=== PATIENT | female | born 1985 | race Caucasian/White ===

== ENCOUNTER → 2024-10-10 | Outpatient (CLI) | payer OTHER, SELFPAY ==
--- NOTE | 2024-10-10 13:15 | XR_ITS ---
Examination: Screening digital mammography, bilateral Computer aided detection 3-D breast Tomosynthesis, bilateral Date and time of exam: October 10, 2024 1256 hours No priors Indication: Screening Technique: Nonmagnified MLO, CC views of the breasts to been obtained, reconstructed from 3-D Tomosynthesis images. R2 computer aided detection program utilized for evaluation of suspicious masses and/or abnormal calcifications. 3-D Tomosynthesis images obtained. Findings: The breasts are heterogeneously dense, which may obscure small masses Probably benign glandular tissue retroareolar region right breast on the CC view Benign calcifications Impression: BI-RADS Category 0: Incomplete: Need additional imaging evaluation Recommend right breast sonography follow-up to confirm benign glandular tissue retroareolar region right breast
== END | disposition home or self-care (01) ==
LOC: CDIM 12:50
PROVIDERS: PCP Family Medicine; Referring Provider Family Medicine; Visit Provider Family Medicine
DX: Z12.31 Encounter for screening mammogram for malignant neoplasm of breast (principal); R92.8 Other abnormal and inconclusive findings on diagnostic imaging of breast
CPT/HCPCS: 77063; 77067

== ENCOUNTER → 2024-10-22 | Outpatient (CLI) | payer OTHER, SELFPAY ==
[2024-10-22 10:20] LABS: Basophils # (Auto) 0.1 Thou/mm3 (0.0-0.2); Basophils % (Auto) 1 % (0-2.5); Eosinophils # (Auto) 0.2 Thou/mm3 (0.0-0.5); Eosinophils % (Auto) 2 % (0-10); Hematocrit 37.3 % (36.0-46.0); Hemoglobin 12.6 g/dL (12.0-16.0); Immature Granulocytes % (Auto) 0 % (0-0); Immature Granulocytes Auto 0.01 Thou/mm3 (0.00-0.00); Lymphocytes # (Auto) 3.2 Thou/mm3 (1.0-4.8); Lymphocytes % (Auto) 37 % (10-50); Mean Corpuscular HGB Conc 33.8 g/dl (31.0-37.0); Mean Corpuscular Volume 83 fL (80-100); Monocytes # (Auto) 0.8 Thou/mm3 (0.0-0.8); Monocytes % (Auto) 9 % (0-12); Neutrophils # (Auto) 4.4 Thou/mm3 (1.8-7.7); Neutrophils % (Auto) 51 % (37-80); Nucleated Red Blood Cell % 0 /100 WBC (0); Platelet Count 351 Thou/mm3 (140-440); RDW Standard Deviation 37.1 fL (36.4-46.3); White Blood Count 8.7 Thou/mm3 (3.6-11.0)
[2024-10-22 10:39] LABS: Alanine Aminotransferase 16 U/L (10-49); Albumin, Serum 4.2 gm/dL (3.5-5.0); Albumin/Globulin Ratio 1.8 (1.2-2.2); Alkaline Phosphatase 64 U/L (46-116); Anion Gap 8 (7-16); Aspartate Amino Transferase 15 U/L (0-34); BUN/Creatinine Ratio 14 Ratio (12-20); Bilirubin,Total 0.6 mg/dL (0.3-1.2); Blood Urea Nitrogen 13 mg/dL (9-23); Calcium 9.6 mg/dL (8.3-10.6); Calcium (Corrected) 9.6 mg/dL (8.5-10.1); Carbon Dioxide 24.6 mMol/L (20.0-31.0); Cardiac Risk Estimate 3.6 RATIO (3.7-5.6); Chloride 108 mMol/L (98-107); Cholesterol 142 mg/dL (132-200); Creatinine (Component) 0.9 mg/dL (0.6-1.3); Globulin 2.4 gm/dL (2.3-3.5); Glucose 109 mg/dL (74-106); HDL Cholesterol 40 mg/dL (40-60); LDL Cholesterol,Calculated 85 mg/dL (0-130); Osmolality,Calculated 282 (275-295); Potassium 4.6 mMol/L (3.4-5.1); Sodium 141 mMol/L (136-145); Thyroid Stimulating Hormone 1.52 uIU/mL (0.55-4.78); Total Protein 6.6 gm/dL (5.7-8.2); Triglycerides 86 mg/dL (30-150); eGFR > 60 See Note
--- NOTE | 2024-10-22 11:15 | XR_ITS ---
Examination: Breast ultrasound, unilateral, right Date and time of exam: October 22, 2024 0934 hours INDICATIONS: BI-RADS 3 probably benign glandular tissue retroareolar region right breast on mammogram October 10, 2024 Technique: Real-time gordon scale ultrasonographic imaging performed right breast including all 4 quadrants as well as nipple retroareolar and axillary region. Findings: No cystic or solid mass IMPRESSION: BI-RADS Category 1: Negative study
== END | disposition home or self-care (01) ==
LOC: CDIM 09:25 → COPL 09:46
PROVIDERS: PCP Family Medicine; Referring Provider Family Medicine; Visit Provider Radiology Diagnostic Radiology
DX: R92.2 Inconclusive mammogram (principal); Z01.419 Encounter for gynecological examination (general) (routine) without abnormal findings; I10 Essential (primary) hypertension
CPT/HCPCS: 36415; 76641; 80053; 80061; 84443; 85025

== ENCOUNTER → 2024-10-26 | Outpatient (CLI) | payer OTHER, SELFPAY ==
--- NOTE | 2024-10-26 16:53 | XR_ITS ---
Examination: Left ankle 2 views TECHNIQUE: AP lateral left ankle 2 views Exam date and time: October 26, 2024, 1701 hours INDICATIONS: Left ankle pain beginning one week ago. FINDINGS: No fracture or dislocation. Mild osteoarthritis tibiotalar joint, talonavicular joint IMPRESSION: Mild osteoarthritis tibiotalar and talonavicular joints
== END | disposition home or self-care (01) ==
PROVIDERS: PCP Family Medicine; Referring Provider Orthopaedic Surgery; Visit Provider Orthopaedic Surgery
DX: M19.072 Primary osteoarthritis, left ankle and foot (principal)
CPT/HCPCS: 73600

== ENCOUNTER 2025-06-09 12:12 | Emergency (ER) | payer OTHER, SELFPAY ==
[2025-06-09 12:13] VITALS: BMI 32.3
[2025-06-09 13:25] VITALS: BP 133/95; PULSE 63; RESP 20; TEMP 36.7; O2SAT 96
--- NOTE | 2025-06-09 13:27 | PD.EDURI ---
Upper Respiratory Inf. RME/HPI General Chief Complaint: Flu Like Symptoms Stated Complaint: COUGH FOR 12 DAYS Time Seen by Provider: 06/09/25 13:26 Arrival date/time: 06/09/25 12:12 RME / HPI RME / HPI Narrative: See [facility] for Dr. Cordon's HPI Documentation. Related Data Previous Rx's ?Medication ?Instructions ?Recorded hydrocodone 5 mg-acetaminophen 325 1 tab PO Q6H PRN pain #20 tabs 03/11/18 mg tablet ([place]) ibuprofen 600 mg tablet 600 mg PO TID PRN pain #20 tabs 03/11/18 hydralazine 10 mg tablet 10 mg PO BID #30 tabs 09/27/23 acetaminophen 300 mg-codeine 30 mg 2 tab PO Q8H PRN pain #20 tabs 06/09/25 tablet albuterol sulfate 90 mcg/actuation 2 puff inhalation Q6H PRN 06/09/25 aerosol inhaler shortness of breath or wheezing #8.5 grams fluconazole 200 mg tablet 400 mg (2 x 200 mg) PO QDAY #60 06/09/25 tabs prednisone 20 mg tablet 20 mg PO BID 3 days #6 tabs 06/09/25 Allergies Allergy/AdvReac Type Severity Reaction Status Date / Time No Known Allergies Allergy Verified 06/09/25 12:15 Review of Systems Review of Systems Systems Reviewed: All systems reviewed, normal except as documented Past Medical History Social History SMOKING STATUS: Never smoker SUBSTANCE USE: does not use ALCOHOL: Never ED Exam Narrative Physical exam: See [facility] for Dr. Cordon's HPI Documentation. Course Quality Measures none Orders Category Date Time Status Bedside COVID-19 Antigen Test NOW Care 06/09/25 13:27 Completed XR chest 2V Stat Exams 06/09/25 13:28 Completed BNP [B-Type Natriuretic Peptide] Stat Lab 06/09/25 13:53 Completed Bilirubin,Direct Stat Lab 06/09/25 13:53 Completed CBC Stat Lab 06/09/25 13:53 Completed CMP [Comprehensive Metabolic Panel] Stat Lab 06/09/25 13:53 Completed Cocci Serology IgM with reflex to IgG [Cocci Serology, Lab 06/09/25 14:22 Completed Unk History] Stat Cocci Serology, IgG Stat Lab 06/09/25 14:22 Completed D-Dimer Stat Lab 06/09/25 13:53 Completed Influenza A & B Rapid Panel Stat Lab 06/09/25 13:46 Completed Magnesium Stat Lab 06/09/25 13:53 Completed RSV [Respiratory Syncytial Virus Ag] Stat Lab 06/09/25 13:46 Completed TSH [Thyroid Stimulating Hormone] Stat Lab 06/09/25 13:53 Completed Troponin I Stat Lab 06/09/25 13:53 Completed ACETAMINOPHEN w/COD 300-30 [Tylenol w/Cod #3] Med 06/09/25 13:27 Discontinued 2 tab PO X1 ONE Albuterol/Ipratr Rt Quiana [Duoneb Rt Quiana] Med 06/09/25 13:27 Discontinued 3 ml INH X1 ONE Fluconazole [Diflucan] Med 06/09/25 15:42 Discontinued 400 mg PO X1 ONE predniSONE Med 06/09/25 13:27 Discontinued 60 mg PO X1 ONE Vital Signs Vital signs: Vital Signs Temperature 98.1 F 06/09/25 13:25 Pulse Rate 63 06/09/25 13:25 Respiratory Rate 20 06/09/25 13:25 Blood Pressure 133/95 H 06/09/25 13:25 Pulse Oximetry (%) 96 06/09/25 13:25 Oxygen Delivery Method Room Air 06/09/25 13:25 Upper Respiratory Infection MDM Narrative MDM Narrative:: This section includes all my notes and documentations, including HPI, PE, and ED course. Grady Cordon MD HPI: 39-year-old female here with months of cough, occasionally productive cough, and dyspnea. Has been treated for pneumonia multiple times. No other complaints. ROS: All negative except as documented in HPI. Physical Exam: General: Alert and oriented. Hacking cough noted. Eyes: Conjunctivae and lids clear. ENT: No nasal congestion. Pharynx normal. TM normal. Neck: Supple. Heart: RRR. Lungs: No respiratory distress. Decreased air movement with diffuse rhonchi. Abdomen: Soft and nontender. Skin: Warm and dry. Neuro: Alert and oriented X 3. I reviewed all diagnostic test results: My interpretation of the chest x-ray is equivocal infiltrates. Blood tests unremarkable, including negative troponin/D-dimer/BNP. Covid/influenza/RSV negative. Coccidioides IgM AB pending. At this point, diagnoses include: Possible Valley Fever Treatment here included: Prednisone 60 mg DuoNeb Two Tylenol #3 Diflucan 100 mg Significant improvement noted. Recommended for outpatient care. Based on my best medical judgment, made decision no further evaluation or treatment indicated at this time. Patient understands and agrees to the discharge instructions customized and printed, see below. Discharge instructions from Dr. Cordon: --No physical exertion for 3 days to help rest the lungs. ?No smoking or exposure to smoking or pets or dust or cold or humidity. --Diflucan as prescribed, since you requested treatment for valley fever before the results. --Prednisone to help decrease the swelling in the airways. --Albuterol 2 puffs every 4-6 hours for 3 days to help keep the airways open. Then as needed for cough or shortness of breath. --Tylenol with codeine for severe cough or severe pain. --See a private doctor on 06/11/2025 for recheck and further care. Ask to review all test results and official radiology reports, to make sure you receive all necessary follow-ups and monitoring, including the results for valley fever. Ask for help until you are completely better. --Seek immediate medical care with worsening or with any concerns. Grady Cordon MD Patient data External records reviewed:: [facility] previous records Clinical information provided by:: patient Social determinants that could affect healthcare access:: none Patient has the following chronic illnesses:: Hypertension How is presenting disease/condition affected by chronic disease/condition?: uneffected by Evaluation data The following diagnostics were reviewed and interpreted by me:: lab results and radiology exam(s) Lab and/or radiology exams considered but not ordered:: none Interpretation Summary: I reviewed all diagnostic test results: My interpretation of the chest x-ray is equivocal infiltrates. Blood tests unremarkable, including negative troponin/D-dimer/BNP. Covid/influenza/RSV negative. Coccidioides IgM AB pending. Medications / Prescriptions Medications or Prescriptions considered but not ordered:: none Medication administrations:: Medication Administration History Discontinued Medications Acetaminophen/Codeine Phosphate (Acetaminophen W/Cod 300-30 Tablet) 2 tab PO X1 ONE Stop: 06/09/25 13:28 Last Admin: 06/09/25 14:07 Dose: Not Given Documented By: Non-Admin Reason: Patient Refused Albuterol/Ipratropium (Albuterol/Ipratropium (Duoneb) Rt Quiana 3 Ml Nebu) 3 ml INH X1 ONE Stop: 06/09/25 13:28 Last Admin: 06/09/25 14:06 Dose: 3 ml Documented By: JAVIER Fluconazole (Fluconazole 100 Mg Tablet) 400 mg PO X1 ONE Stop: 06/09/25 15:43 Last Admin: 06/09/25 16:29 Dose: 400 mg Documented By: Prednisone (Prednisone 20 Mg Tablet) 60 mg PO X1 ONE Stop: 06/09/25 13:28 Last Admin: 06/09/25 14:01 Dose: 60 mg Documented By: Treatment here included: Prednisone 60 mg DuoNeb Two Tylenol #3 Diflucan 100 mg Consultations Consultation(s) initiated? (list below): No Diagnosis Upper Respiratory Differential Diagnosis: upper respiratory infection, croup, otitis media, sinusitis, viral infection, bronchitis, influenza, pharyngitis and other Most likely diagnosis given after review of the tests above:: Possible valley fever Admission Indicated Admission indicated?: not indicated Explain why admission is indicated or not indicated:: With significant improvement and no condition needing emergent intervention, there was no indication for admission. Admission Request Was there a request for admission?: No Disposition Plan Disposition Plan: Discharge Discharge Attestation Discharge Attestation: The patient and all family members were given an opportunity to ask questions and understood the discharge instructions. Discharge instructions specifically effects, indications for sooner follow up or return to the emergency department, and the expected course of current diagnosis. Patient condition: Stable Discharge Plan Plan Patient Disposition: HOME (Self Care) Prescriptions/Referrals Prescriptions/Med Rec: New fluconazole 200 mg tablet 400 mg PO QDAY Qty: 60 2RF prednisone 20 mg tablet 20 mg PO BID 3 Days Qty: 6 0RF Taper: Prednisone Taper 20 mg DAILY for 2 Days and 0 Hour 10 mg DAILY for 2 Days and 0 Hour 5 mg DAILY for 7 Days and 0 Hour acetaminophen-codeine 300-30 mg tablet 2 tab PO Q8H MDD 6 PRN (Reason: pain) Qty: 20 0RF albuterol sulfate 90 mcg/actuation HFA aerosol inhaler 2 puff inhalation Q6H PRN (Reason: shortness of breath or wheezing) Qty: 8.5 0RF No Action ibuprofen 600 mg tablet 600 mg PO TID PRN (Reason: pain) Qty: 20 0RF Rx Instructions: mild to moderate pain hydrocodone-acetaminophen [[place]] 5-325 mg tablet 1 tab PO Q6H MDD 4 tabs per day PRN (Reason: pain) Qty: 20 0RF Rx Instructions: severe pain hydralazine 10 mg tablet 10 mg PO BID Qty: 30 0RF Referrals: Alina Huggins MD [Primary Care Provider, Family Practice] - In 1 week Problem List Clinical Impression: Cough Patient/Caregiver Discharge Instructions Discharge Activity: activity as tolerated Education Materials: ED Cough Chronic Uncertain Cause Adult Additional Instructions: Discharge instructions from Dr. Cordon: --No physical exertion for 3 days to help rest the lungs. ?No smoking or exposure to smoking or pets or dust or cold or humidity. --Diflucan as prescribed, since you requested treatment for valley fever before the results. --Prednisone to help decrease the swelling in the airways. --Albuterol 2 puffs every 4-6 hours for 3 days to help keep the airways open. Then as needed for cough or shortness of breath. --Tylenol with codeine for severe cough or severe pain. --See a private doctor on 06/11/2025 for recheck and further care. Ask to review all test results and official radiology reports, to make sure you receive all necessary follow-ups and monitoring, including the results for valley fever. Ask for help until you are completely better. --Seek immediate medical care with worsening or with any concerns. Print Language: Ukrainian Stand Alone Forms: [employer] Award Info., Work/School Release, Patient Portal Info Letter
--- NOTE | 2025-06-09 13:28 | XR_ITS ---
EXAMINATION: PA lateral chest 2 views TECHNIQUE: Upright PA lateral chest 2 views Date and time: June 09, 2025, 1334 hours INDICATIONS: Coughing fever beginning 3 days ago. FINDINGS: Suspicious for early pneumonia right upper lobe. Normal heart size Left lung clear IMPRESSION: Suspicious for early pneumonia right upper lobe
[2025-06-09 14:06] VITALS: PULSE 98; RESP 18; O2SAT 99
[2025-06-09] MEDS: ALBUTEROL/IPRATROPIUM (Duoneb) RT SOL 3 ML NEBU INH (14:06)
[2025-06-09 14:13] LABS: Influenza A Ag Negative; Influenza B Ag Negative; Respiratory Syncytial Virus Ag Negative (Negative)
[2025-06-09 14:27] LABS: Basophils # (Auto) 0.0 Thou/mm3 (0.0-0.2); Basophils % (Auto) 0 % (0-2.5); Eosinophils # (Auto) 0.2 Thou/mm3 (0.0-0.5); Eosinophils % (Auto) 2 % (0-10); Hematocrit 38.8 % (36.0-46.0); Hemoglobin 13.4 g/dL (12.0-16.0); Immature Granulocytes Auto 0.03 Thou/mm3 (0.00-0.00); Lymphocytes # (Auto) 3.2 Thou/mm3 (1.0-4.8); Lymphocytes % (Auto) 31 % (10-50); Mean Corpuscular HGB Conc 34.5 g/dl (31.0-37.0); Mean Corpuscular Hemoglobin 28.9 pg (25.0-35.0); Mean Corpuscular Volume 84 fL (80-100); Monocytes # (Auto) 0.7 Thou/mm3 (0.0-0.8); Monocytes % (Auto) 6 % (0-12); Neutrophils # (Auto) 6.2 Thou/mm3 (1.8-7.7); Neutrophils % (Auto) 60 % (37-80); Nucleated Red Blood Cell # 0.00 Thou/mm3 (0.00-0.00); Nucleated Red Blood Cell % 0 /100 WBC (0); Platelet Count 376 Thou/mm3 (140-440); RDW Standard Deviation 37.0 fL (36.4-46.3); Red Blood Count 4.64 Miln/mm3 (4.00-5.20); White Blood Count 10.3 Thou/mm3 (3.6-11.0)
[2025-06-09 14:38] LABS: B-Type Natriuretic Peptide < 20 pg/mL (0-100)
[2025-06-09 14:42] LABS: Alanine Aminotransferase 12 U/L (10-49); Albumin, Serum 4.9 gm/dL (3.5-5.0); Albumin/Globulin Ratio 2.0 (1.2-2.2); Alkaline Phosphatase 73 U/L (46-116); Anion Gap 9 (7-16); Aspartate Amino Transferase 18 U/L (0-34); BUN/Creatinine Ratio 11 Ratio (12-20); Bilirubin,Direct 0.1 mg/dL (0.0-0.3); Bilirubin,Total 0.3 mg/dL (0.3-1.2); Blood Urea Nitrogen 9 mg/dL (9-23); Calcium 9.9 mg/dL (8.3-10.6); Calcium (Corrected) 9.9 mg/dL (8.5-10.1); Carbon Dioxide 26.5 mMol/L (20.0-31.0); Chloride 107 mMol/L (98-107); Creatinine (Component) 0.8 mg/dL (0.6-1.3); Estimated Creatinine Clearance 105.0 mL/min (>60); Globulin 2.4 gm/dL (2.3-3.5); Glucose 100 mg/dL (74-106); Magnesium 1.9 mg/dL (1.6-2.6); Osmolality,Calculated 281 (275-295); Potassium 4.6 mMol/L (3.4-5.1); Sodium 142 mMol/L (136-145); Thyroid Stimulating Hormone 1.37 uIU/mL (0.55-4.78); Total Protein 7.3 gm/dL (5.7-8.2); Troponin I < 0.002 ng/mL (0.0-0.045); eGFR > 60 See Note
[2025-06-09 15:05] LABS: D-Dimer < 250 ng/mL (<600)
[2025-06-09] MEDS: FLUCONAZOLE 100 MG TABLET 400 MG PO (16:29)
[2025-06-10 12:10] LABS: Cocci Serology, IgM Negative (Negative)
[2025-06-11 11:51] LABS: Cocci Serology, IgG Negative (Negative)
== END 2025-06-09 18:01 | disposition home or self-care (01) ==
PROVIDERS: Emergency Provider Emergency Medicine; PCP Family Medicine
DX: R05.9 Cough, unspecified (principal)
CPT/HCPCS: 36415; 71046; 80053; 82248; 83735; 83880; 84443; 84484; 85025; 85379; 86331; 86635; 87502; 87634; 87635; 94640; 99283; A9270; J7512

== ENCOUNTER → 2025-06-12 | Outpatient (CLI) | payer OTHER, SELFPAY ==
[2025-06-12 07:53] LABS: Quantiferon-TB* See Sep Rpt
== END | disposition home or self-care (01) ==
LOC: COPL 07:25
PROVIDERS: PCP Family Medicine; Referring Provider Family Medicine; Visit Provider Family Medicine
DX: J18.9 Pneumonia, unspecified organism (principal)
CPT/HCPCS: 86480

== ENCOUNTER → 2025-06-17 | Outpatient (CLI) | payer OTHER, SELFPAY ==
[2025-06-17 09:01] LABS: Collection Type, Urine Clean Catch
[2025-06-17 09:32] LABS: Basophils # (Auto) 0.1 Thou/mm3 (0.0-0.2); Basophils % (Auto) 1 % (0-2.5); Eosinophils # (Auto) 0.3 Thou/mm3 (0.0-0.5); Eosinophils % (Auto) 4 % (0-10); Hematocrit 40.0 % (36.0-46.0); Hemoglobin 13.2 g/dL (12.0-16.0); Immature Granulocytes Auto 0.02 Thou/mm3 (0.00-0.00); Lymphocytes # (Auto) 4.0 Thou/mm3 (1.0-4.8); Lymphocytes % (Auto) 43 % (10-50); Mean Corpuscular HGB Conc 33.0 g/dl (31.0-37.0); Mean Corpuscular Hemoglobin 28.0 pg (25.0-35.0); Mean Corpuscular Volume 85 fL (80-100); Monocytes # (Auto) 0.8 Thou/mm3 (0.0-0.8); Monocytes % (Auto) 8 % (0-12); Neutrophils # (Auto) 4.2 Thou/mm3 (1.8-7.7); Neutrophils % (Auto) 45 % (37-80); Nucleated Red Blood Cell # 0.00 Thou/mm3 (0.00-0.00); Nucleated Red Blood Cell % 0 /100 WBC (0); Platelet Count 370 Thou/mm3 (140-440); RDW Standard Deviation 37.7 fL (36.4-46.3); Red Blood Count 4.72 Miln/mm3 (4.00-5.20); White Blood Count 9.3 Thou/mm3 (3.6-11.0)
[2025-06-17 09:36] LABS: Bacteria,Urine 1+; Bilirubin,Urine Negative (Negative); Blood,Urine Negative (Negative); Clarity,Urine Turbid (Clear/Hazy); Color,Urine Yellow (Lt Yel-Yel); Glucose, Urine Negative (Negative); Ketones,Urine Negative (Negative); Leukocyte Esterase,Urine Negative (Negative); Nitrite,Urine Negative (Negative); PH,Urine 6.5 (5.0-7.0); Protein,Urine Trace (Neg - Trace); RBC,Urine 1 /hpf (0-3); Specific Gravity,Urine 1.022 (1.001-1.035); Squamous Epithelial Cell,Urine 31 /hpf (0-5); Urobilinogen,Urine Negative mg/dL (0.0-1.0); WBC,Urine 2 /hpf (0-5)
[2025-06-17 09:41] LABS: Glucose Estimated Average 114 mg/dL (80-131); Hemoglobin A1C 5.6 % Hgb (4.8-6.0)
[2025-06-17 09:43] LABS: Alanine Aminotransferase 13 U/L (10-49); Albumin, Serum 4.7 gm/dL (3.5-5.0); Albumin/Globulin Ratio 1.9 (1.2-2.2); Alkaline Phosphatase 66 U/L (46-116); Anion Gap 8 (7-16); Aspartate Amino Transferase 17 U/L (0-34); BUN/Creatinine Ratio 12 Ratio (12-20); Bilirubin,Direct 0.1 mg/dL (0.0-0.3); Bilirubin,Total 0.5 mg/dL (0.3-1.2); Blood Urea Nitrogen 11 mg/dL (9-23); Calcium 9.6 mg/dL (8.3-10.6); Calcium (Corrected) 9.6 mg/dL (8.5-10.1); Carbon Dioxide 25.9 mMol/L (20.0-31.0); Cardiac Risk Estimate 3.9 RATIO (3.7-5.6); Chloride 106 mMol/L (98-107); Cholesterol 158 mg/dL (132-200); Creatinine (Component) 0.9 mg/dL (0.6-1.3); Globulin 2.5 gm/dL (2.3-3.5); Glucose 112 mg/dL (74-106); HDL Cholesterol 41 mg/dL (40-60); LDL Cholesterol,Calculated 84 mg/dL (0-130); Osmolality,Calculated 279 (275-295); Potassium 4.9 mMol/L (3.4-5.1); Sodium 140 mMol/L (136-145); Thyroid Stimulating Hormone 1.38 uIU/mL (0.55-4.78); Total Protein 7.2 gm/dL (5.7-8.2); Triglycerides 164 mg/dL (30-150); eGFR > 60 See Note
== END | disposition home or self-care (01) ==
LOC: COPL 08:09
PROVIDERS: PCP Family Medicine; Referring Provider Family Medicine; Visit Provider Family Medicine
DX: I10 Essential (primary) hypertension (principal); R05.9 Cough, unspecified
CPT/HCPCS: 36415; 80053; 80061; 81001; 82248; 83036; 84443; 85025

== ENCOUNTER → 2025-06-19 | Outpatient (CLI) | payer OTHER, SELFPAY ==
--- NOTE | 2025-06-19 10:31 | XR_ITS ---
EXAMINATION: PA lateral chest 2 views TECHNIQUE: Upright PA lateral chest 2 views Date and time: June 19, 2025, 1052 hours COMPARISON: June 09, 2025 FINDINGS: Pneumonia has cleared in the right upper lobe No current pneumonia Normal heart size Ernesto structures are intact IMPRESSION: Pneumonia has cleared in the right upper lobe
== END | disposition home or self-care (01) ==
PROVIDERS: PCP Family Medicine; Referring Provider Family Medicine; Visit Provider Family Medicine
DX: J18.9 Pneumonia, unspecified organism (principal)
CPT/HCPCS: 71046

== ENCOUNTER → 2025-07-12 | Outpatient (CLI) | payer OTHER, SELFPAY ==
[2025-07-12 08:33] LABS: Basophils # (Auto) 0.0 Thou/mm3 (0.0-0.2); Basophils % (Auto) 1 % (0-2.5); Eosinophils # (Auto) 0.2 Thou/mm3 (0.0-0.5); Eosinophils % (Auto) 2 % (0-10); Hematocrit 37.3 % (36.0-46.0); Hemoglobin 12.7 g/dL (12.0-16.0); Immature Granulocytes Auto 0.02 Thou/mm3 (0.00-0.00); Lymphocytes # (Auto) 3.1 Thou/mm3 (1.0-4.8); Lymphocytes % (Auto) 40 % (10-50); Mean Corpuscular HGB Conc 34.0 g/dl (31.0-37.0); Mean Corpuscular Hemoglobin 28.0 pg (25.0-35.0); Mean Corpuscular Volume 82 fL (80-100); Monocytes # (Auto) 0.7 Thou/mm3 (0.0-0.8); Monocytes % (Auto) 9 % (0-12); Neutrophils # (Auto) 3.8 Thou/mm3 (1.8-7.7); Neutrophils % (Auto) 48 % (37-80); Nucleated Red Blood Cell # 0.00 Thou/mm3 (0.00-0.00); Nucleated Red Blood Cell % 0 /100 WBC (0); Platelet Count 384 Thou/mm3 (140-440); RDW Standard Deviation 37.6 fL (36.4-46.3); Red Blood Count 4.53 Miln/mm3 (4.00-5.20); White Blood Count 7.8 Thou/mm3 (3.6-11.0)
[2025-07-12 08:49] LABS: Glucose Estimated Average 117 mg/dL (80-131); Hemoglobin A1C 5.7 % Hgb (4.8-6.0)
[2025-07-12 09:07] LABS: Alanine Aminotransferase 22 U/L (10-49); Albumin, Serum 4.7 gm/dL (3.5-5.0); Albumin/Globulin Ratio 1.7 (1.2-2.2); Alkaline Phosphatase 67 U/L (46-116); Anion Gap 8 (7-16); Aspartate Amino Transferase 22 U/L (0-34); BUN/Creatinine Ratio 18 Ratio (12-20); Bilirubin,Total 0.4 mg/dL (0.3-1.2); Blood Urea Nitrogen 14 mg/dL (9-23); Calcium 9.3 mg/dL (8.3-10.6); Calcium (Corrected) 9.3 mg/dL (8.5-10.1); Carbon Dioxide 25.0 mMol/L (20.0-31.0); Cardiac Risk Estimate 3.8 RATIO (3.7-5.6); Chloride 108 mMol/L (98-107); Cholesterol 167 mg/dL (132-200); Creatinine (Component) 0.8 mg/dL (0.6-1.3); Free T4 (Free Thyroxine) 1.05 ng/dL (0.89-1.76); Globulin 2.8 gm/dL (2.3-3.5); Glucose 123 mg/dL (74-106); HDL Cholesterol 44 mg/dL (40-60); LDL Cholesterol,Calculated 107 mg/dL (0-130); Osmolality,Calculated 282 (275-295); Potassium 4.3 mMol/L (3.4-5.1); Sodium 141 mMol/L (136-145); Thyroid Stimulating Hormone 1.53 uIU/mL (0.55-4.78); Total Protein 7.5 gm/dL (5.7-8.2); Triglycerides 81 mg/dL (30-150); eGFR > 60 See Note
[2025-07-12 09:47] LABS: Hepatitis C Antibody Non Reactive (Non React); Vitamin D 25 Hydroxy Total 39.1 ng/mL (7.3-40.2)
[2025-07-12 14:04] LABS: Cocci Serology, IgM Negative (Negative)
[2025-07-13 14:29] LABS: Cocci Serology, IgG Negative (Negative)
[2025-07-22 07:08] LABS: Direct LDL* 109 mg/dL (<100)
== END | disposition home or self-care (01) ==
LOC: COPL 07:28
PROVIDERS: PCP Family Medicine; Referring Provider Nurse Practitioner Family; Visit Provider Nurse Practitioner Family
DX: R53.81 Other malaise (principal); R53.83 Other fatigue; Z11.8 Encounter for screening for other infectious and parasitic diseases; Z13.1 Encounter for screening for diabetes mellitus; Z13.29 Encounter for screening for other suspected endocrine disorder; Z13.220 Encounter for screening for lipoid disorders; Z11.59 Encounter for screening for other viral diseases
CPT/HCPCS: 36415; 80053; 80061; 82306; 83036; 83721; 84439; 84443; 85025; 86331; 86635; 86803

== ENCOUNTER → 2025-07-16 | Outpatient (CLI) | payer OTHER, SELFPAY ==
[2025-07-16 09:09] LABS: HCG Qualitative,Urine Negative
--- NOTE | 2025-07-16 09:37 | XR_ITS ---
Examination: CT chest, without intravenous contrast. Sagittal and coronal 2-D reconstructions. Exam date and time: 07/16/2025 at 9:54 a.m. CTDI:vol (mGy) 10.8 DLP: (mGycm) 404 CLINICAL INDICATION: Suspect left lower lobe pneumonia, infectious origin cough and chest pain and shortness of breath for 3 months with history of previous pneumonia Technique: Multiple 3.0 mm axial sections of the chest to been obtained. Bone and lung density settings are obtained. Sagittal and coronal 2-D reconstructions have been obtained. Low dose protocols were performed. One or more of the following dose reduction techniques were used; automated exposure control, adjustment of the mA and/or KV according to patient size, use of iterative reconstruction technique. Findings: No abnormalities are seen in the bones, the heart shadow and configuration of the mediastinum appear normal on images below the diaphragm, it is possible that there might be mild hepatosplenomegaly no other abnormalities are identified. In the lungs, in the anterior aspect of the medial segment right middle lobe, there is an exceedingly small but definite focus of atelectasis, which very well might be chronic. Numerous air bronchograms are seen within this subsegmental infiltrate. Scattered throughout the right upper lobe there are multifocal areas of exceptionally faint groundglass density infiltrate. They are so faint that might easily escape detection remainder of both lungs and pleural space are clear normal IMPRESSION: 1. In the medial segment right middle lobe there is a very small but definite focus of atelectasis with air bronchograms. Whether this is subacute or chronic is uncertain. 2. Scattered throughout many areas in the right upper lobe there are exceptionally faint areas of groundglass density infiltrate these very likely might relate to minimal viral pneumonitis, of uncertain age 3. All of the lungs and pleural space are otherwise clear normal 4 there is the suggestion of possible mild hepatomegaly and splenomegaly. Clinical correlation is recommended
== END | disposition home or self-care (01) ==
LOC: CDIM 08:03
PROVIDERS: Referring Provider Nurse Practitioner Family; Visit Provider Nurse Practitioner Family
DX: J98.11 Atelectasis (principal)
CPT/HCPCS: 71250; 81025